=== PATIENT | female | born 2000 | race Caucasian/White ===

== ENCOUNTER 2020-05-21 11:03 | Emergency (ER) | payer BC, OTHER ==
[~2020-05-21] VITALS: Ht 167.6 cm; Wt 77.1 kg
--- NOTE | 2020-05-21 11:15 | NUR ---
PT came to ER with c/o left foot, and neck pain s/p fall from skateboard 3 days ago. pt able to move extremity. no swelling, no discoloration. awaiting for MD grande
--- NOTE | 2020-05-21 11:29 | NUR ---
DR CRISTOBAL AT BEDSIDE
[2020-05-21 12:17] VITALS: BP 102/59
== END 2020-05-21 12:20 | disposition home or self-care (01) ==
LOC: ER 11:07
DX: S90.32XA Contusion of left foot, initial encounter (principal); S90.412A Abrasion, left great toe, initial encounter; S90.415A Abrasion, left lesser toe(s), initial encounter; V00.131A Fall from skateboard, initial encounter; Y93.51 Activity, roller skating (inline) and skateboarding; Y92.89 Other specified places as the place of occurrence of the external cause; Y99.8 Other external cause status
CPT/HCPCS: 73630-TC